=== PATIENT | male | born 1940 | race Caucasian/White ===

== ENCOUNTER → 2016-12-08 | Outpatient (CLI) | payer OTHER ==
[~2016-12-08] MED LIST: ASPEC81 PO; ATOR-24 PO; METO25TA56 PO; NITR0.4S UT; TAMS0.4C38 PO
[2016-12-08 17:02] LABS: BASO % 0.5 %; BASO ABS # 0.05 K/uL (0-0.2); COMPLETE YES; EOS % 1.7 %; IG% 0.4 %; LYMPH % 28.9 %; LYMPH ABS # 2.74 K/uL (1.2-3.4); MEAN CORPUSCULAR HEMOGLOBIN 28.7 pg (25-34); MEAN PLATELET VOLUME 11.5 fL (7.4-10.4); MONO % 11.1 %; NEUT % 57.4 %; PLATELET COUNT 254 K/uL (130-400); RED BLOOD COUNT 5.29 M/uL (4.7-6.1); WHITE BLOOD COUNT 9.47 K/uL (4.8-10.8)
[2016-12-08 17:13] LABS: ALT/SGPT 30 U/L (12-78); BLOOD UREA NITROGEN 21 mg/dl (7-18); BUN/CREATININE RATIO 13.9 (10-20); CALCIUM 9.3 mg/dl (8.5-10.1); CARBON DIOXIDE 31 mmol/L (21-32); CHLORIDE 103 mmol/L (98-107); CHOLESTEROL 211 mg/dl (0-200); GLUCOSE 105 mg/dl (70-99); POTASSIUM 4.3 mmol/L (3.5-5.1); SODIUM 139 mmol/L (136-145); TRIGLYCERIDES 306 mg/dl (0-150); VERY LOW DENSITY LIPOPROT CALC 61 mg/dl
[2016-12-08 17:22] LABS: ALB/GLOB RATIO 0.9 (0.9-2); ALKALINE PHOSPHATASE 97 U/L (45-117); AST/SGOT 22 U/L (15-37); CHOLESTEROL/HDL RATIO 6.2; FERRITIN 247.5 ng/ml (8.0-388.0); HDL CHOLESTEROL 34 mg/dl; LDL CHOLESTEROL CALCULATED 116 mg/dl; TOTAL IRON BINDING CAPACITY 278 mcg/dl (250-450)
== END | disposition home or self-care (01) ==
LOC: C.LABBC 13:11
PROVIDERS: ATTEND Family Medicine
DX: E03.9 Hypothyroidism, unspecified (principal); N18.3 Chronic kidney disease, stage 3 (moderate); D64.9 Anemia, unspecified; E78.5 Hyperlipidemia, unspecified; C61 Malignant neoplasm of prostate

== ENCOUNTER → 2017-12-12 | Outpatient (CLI) | payer OTHER | END | disposition home or self-care (01) | LOC: C.LABBC 12:48 | PROVIDERS: ATTEND Urology | DX: C61 Malignant neoplasm of prostate (principal) ==

== ENCOUNTER → 2017-12-31 | Outpatient (CLI) | payer OTHER ==
[2017-12-31 13:06] LABS: BLOOD UREA NITROGEN 14 mg/dl (7-18); CREATININE 1.21 mg/dl (0.60-1.40)
== END | disposition home or self-care (01) ==
LOC: C.LAB1850 10:31
PROVIDERS: ATTEND Urology
DX: N40.1 Benign prostatic hyperplasia with lower urinary tract symptoms (principal)

== ENCOUNTER → 2018-01-03 | Outpatient (CLI) | payer OTHER ==
[~2018-01-03] MED LIST changes: +GADAVIST IV PRN
--- NOTE | 2018-01-03 09:50 | DIAGNOSTIC IMAGING REPORT ---
PROSTATE MRI COMBO CLINICAL HISTORY: 77 years-old Male presenting with C61 Prostate cancer, history of [place] 3+3 at the left base. PSA 4.43 ng/mL on 12/12/2017. TECHNIQUE: Multisequence, multiplanar MR imaging of the prostate was performed before and after the administration of intravenous contrast. Additional postprocessing was performed on a separate [employer] workstation by the radiologist for 3-D volumetric segmentation of the prostate and contouring of region(s) of interest ([place]) for targeting. IV contrast: None. COMPARISON: None. FINDINGS: Prostate: The prostate measures 4.9 x 4.0 x 4.6 cm(DynaCAD prostate boundary segmentation volume 47 mL). PSA density (PSA/prostate volume): 0.094. Moderate changes of benign prostatic hyperplasia. Precontrast T1 weighted imaging demonstrates no evidence of intrinsic T1 hyperintensity to suggest hemorrhage. Heterogeneous T2 hypointensity throughout the peripheral zone limits evaluation. Suspicious lesion(s) described below: Lesion (DynaCAD [place]) 1: Location: Left posterolateral peripheral zone at the base. The lesion does not extend across the midline. Size: 14 mm (as measured on ADC for PZ lesion and T2WI for TZ lesion) T2W: 2. Linear or wedge-shaped hypointensity or diffuse mild hypointensity, usually indistinct margin. No evidence of extraprostatic extension, seminal vesicle invasion, or neurovascular bundle involvement. DWI: 2. Indistinct hypointense on ADC. DCE: Positive. Focal enhancement corresponding to a suspicious finding, earlier or contemporaneous with adjacent normal tissue. PI-RADS: 2. Clinically significant cancer is unlikely due to be present. Seminal vesicles normal. Bladder: Bladder wall thickening likely indicating chronic outlet obstruction. Bowel: Visualized portion of the rectum normal. Peritoneum: No free fluid in the pelvis. Lymph nodes: No lymphadenopathy in the visualized portion of the pelvis. Vasculature: Iliac vessels patent. Abdominal wall: Normal. Osseous structures: Normal bone marrow signal intensity. IMPRESSION: 1. No suspicious lesion in the transition or peripheral zones for targeted biopsy. 14 mm lesion in the left peripheral zone at the base. PI-RADS: 2. Clinically significant cancer is unlikely due to be present. This is further supported by the PSA Density less than 0.15. 2. Benign prostatic hyperplasia. Electronically signed by: Leland Banks M.D. 01/03/2018 9:48 AM Dictated Date/Time: 01/03/2018 9:38 AM
== END | disposition home or self-care (01) ==
LOC: C.MRIBC 07:54
PROVIDERS: ATTEND Urology
DX: C61 Malignant neoplasm of prostate (principal); N40.0 Benign prostatic hyperplasia without lower urinary tract symptoms

== ENCOUNTER → 2018-01-16 | Outpatient (CLI) | payer OTHER ==
[~2018-01-16] MED LIST changes: -GADAVIST IV PRN
[2018-01-16 16:55] LABS: BASO % 0.4 %; BASO ABS # 0.03 K/uL (0-0.2); EOS % 2.3 %; EOS ABS # 0.19 K/uL (0-0.5); HEMOGLOBIN 16.8 g/dL (14.0-18.0); IG# 0.04 K/uL (0.00-0.02); LYMPH % 31.9 %; LYMPH ABS # 2.64 K/uL (1.2-3.4); MEAN CELL VOLUME 88.6 fL (80-100); MEAN CORPUSCULAR HEMOGLOBIN 30.4 pg (25-34); MEAN CORPUSCULAR HGB CONC 34.3 g/dl (32-36); MEAN PLATELET VOLUME 11.8 fL (7.4-10.4); MONO % 9.4 %; MONO ABS # 0.78 K/uL (0.11-0.59); NEUT % 55.5 %; PLATELET COUNT 249 K/uL (130-400); RED CELL DISTRIBUTION WIDTH CV 15.2 % (11.5-14.5); RED CELL DISTRIBUTION WIDTH SD 49.2 fL (36.4-46.3); WHITE BLOOD COUNT 8.28 K/uL (4.8-10.8)
[2018-01-16 17:02] LABS: ALBUMIN 3.8 gm/dl (3.4-5.0); ALT/SGPT 42 U/L (12-78); AST/SGOT 22 U/L (15-37); BLOOD UREA NITROGEN 17 mg/dl (7-18); CALCIUM 8.6 mg/dl (8.5-10.1); CARBON DIOXIDE 28 mmol/L (21-32); CREATININE 1.18 mg/dl (0.60-1.40); GLUCOSE 96 mg/dl (70-99); POTASSIUM 4.3 mmol/L (3.5-5.1); SODIUM 137 mmol/L (136-145)
[2018-01-16 17:15] LABS: ALKALINE PHOSPHATASE 76 U/L (45-117); CHOLESTEROL 226 mg/dl (0-200); LDL CHOLESTEROL CALCULATED 154 mg/dl; TOTAL PROTEIN 8.1 gm/dl (6.4-8.2)
== END | disposition home or self-care (01) ==
LOC: C.LABBFT 13:35
PROVIDERS: ATTEND Internal Medicine
DX: Z00.00 Encounter for general adult medical examination without abnormal findings (principal); I10 Essential (primary) hypertension; I48.91 Unspecified atrial fibrillation; E03.9 Hypothyroidism, unspecified; I25.10 Atherosclerotic heart disease of native coronary artery without angina pectoris; R73.01 Impaired fasting glucose

== ENCOUNTER → 2018-02-08 | Outpatient (CLI) | payer OTHER ==
--- NOTE | 2018-02-08 12:27 | DIAGNOSTIC IMAGING REPORT ---
LEFT FIFTH FINGER RADIOGRAPHS CLINICAL HISTORY: Left fifth digit pain. COMPARISON: None FINDINGS: There is marked joint space narrowing with moderate osteophytosis of the distal interphalangeal joint of the left fifth finger. This suggest osteoarthritis. There is moderate joint space narrowing of the proximal interphalangeal joint of the left fifth finger. No acute fracture is noted. No suspicious osseous lesion is present. There may be mild soft tissue swelling. IMPRESSION: 1. 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 2. No acute fracture. Electronically signed by: Pablo Saunders M.D. 02/08/2018 12:26 PM Dictated Date/Time: 02/08/2018 12:24 PM
== END | disposition home or self-care (01) ==
LOC: C.RAD1850 11:55
PROVIDERS: ATTEND Internal Medicine
DX: M25.542 Pain in joints of left hand (principal)